=== PATIENT | female | born 1990 | race Caucasian/White ===

== ENCOUNTER 2016-07-29 16:58 | Emergency (ER) | payer BC ==
--- NOTE | 2016-07-29 17:30 | ER Document Report ---
ED Medical Screen (RME) - General Chief Complaint: Headache Stated Complaint: HEADACHE,DIZZY Notes: Headache and dizziness. I greeted and performed a rapid initial assessment of this patient. Comprehensive ED assessment and evaluation of the patient, analysis of test results and completion of the medical decision making process will be conducted by additional ED providers. Physical Exam - Vital signs Vitals: Temp Pulse Resp BP Pulse Ox 98.0 F 87 16 109/78 98 07/29/16 17:22 07/29/16 17:22 07/29/16 17:22 07/29/16 17:22 07/29/16 17:22 Course - Vital Signs Vital signs: Temp Pulse Resp BP Pulse Ox 98.0 F 87 16 109/78 98 07/29/16 17:22 07/29/16 17:22 07/29/16 17:22 07/29/16 17:22 07/29/16 17:22
[2016-07-29] MEDS ORDERED: METOCLOPRAMIDE HCL 10 MG TABLET PO ONE (21:05)
[2016-07-29] MEDS ORDERED: ACETAMINOPHEN 325 MG TABLET PO ONE (21:05)
[2016-07-29] MEDS ORDERED: DIPHENHYDRAMINE HCL 25 MG CAPSULE PO ONE (21:05)
[2016-07-29] MEDS ORDERED: NORMAL SALINE 1000 ML 1,000 ML IV PRN (21:06)
--- NOTE | 2016-07-29 22:50 | ER Document Report ---
HPI - HPI Patient complains to provider of: headache Pain Level: 5 Context: Patient is a 26-year-old female presents emergency Department complaining of headache that started this morning. Patient states that she has a history of migraines as well as a pituitary tumor and Gaucher's disease and limits her ability to take NSAIDs. Patient states that she normally takes Tylenol for her headaches but that this does not feel he can normal migraine. She is describing it as a constant dull ache described as a rubber band around her head. Otherwise she denies any light sensitivity, sound sensitivity and intermittent nausea. Past medical history as above. 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. - CARDIOVASCULAR Cardiovascular: DENIES: Chest pain - DERM Skin Color: Normal, [place] Past Medical History - General Information source: Patient - Social History Smoking Status: Never Smoker Family History: Reviewed & Not Pertinent Patient has suicidal ideation: No Patient has homicidal ideation: No Renal/ Medical History: Denies: Hx Peritoneal Dialysis Past Surgical History: Reports: Hx Orthopedic Surgery - bilat knees - Immunizations Hx Diphtheria, Pertussis, Tetanus Vaccination: Yes Vertical Provider Document - CONSTITUTIONAL Agree With Documented VS: Yes Exam Limitations: No Limitations General Appearance: WD/WN, No Apparent Distress - INFECTION CONTROL TRAVEL OUTSIDE OF THE [place] IN LAST 30 DAYS: No - HEENT HEENT: Atraumatic, Normal ENT Exam, Normocephalic, PERRLA - NECK Neck: Normal Inspection. negative: Lymphadenopathy-Left, Lymphadenopathy-Right - RESPIRATORY Respiratory: Breath Sounds Normal, No Respiratory Distress, Chest Non-Tender. negative: Rales, Rhonchi, Wheezing O2 Sat by Pulse Oximetry: 98 - CARDIOVASCULAR Cardiovascular: Regular Rate, Regular Rhythm, No Murmur Pulses: Normal: Radial - NEURO Level of Consciousness: Awake, Alert, Appropriate Motor/Sensory: No Motor Deficit, No Sensory Deficit Course - Re-evaluation Re-evalutation: 07/29/16 22:55 Patient is a 26-year-old female presents emergency Department complaining of a tension headache. Patient states that she is able to take Tylenol at home normally for her headaches but it didn't really help today. Patient denies any recent changes with her pituitary tumor. She is able to follow-up with her genetic specialist at [place]. She states that she is new to the area she does need a neurologist for as needed for his. Otherwise she is a healthy female who is symptomatically improved after IV fluids, Benadryl and Tylenol. Will discharge home with instruction to follow up with neurology and her PCP Per [facility] protocol and guidelines, this case was discussed with supervising physician Dr. Manoj Arriola prior to discharge - Vital Signs Vital signs: Temp Pulse Resp BP Pulse Ox 98.0 F 87 16 109/78 98 07/29/16 17:22 07/29/16 17:22 07/29/16 20:28 07/29/16 17:22 07/29/16 17:22 - Diagnostic Test Radiology reviewed: Image reviewed, Reports reviewed Discharge - Discharge Clinical Impression: Headache Qualifiers: Headache type: tension-type Headache chronicity pattern: acute headache Intractability: intractable Qualified Code(s): G44.201 - Tension-type headache, unspecified, intractable Condition: Good Disposition: HOME, SELF-CARE Instructions: Antinausea Medication ([facility]), Headache ([facility]), Use of Diphenhydramine Prescriptions: Cyclobenzaprine HCl [Flexeril 5 mg Tablet] 5 mg PO TIDP PRN #15 tablet PRN Reason: Forms: Return to Work Ref[facility]: [facility] [NO LOCAL MD] - Follow up as needed NEO JUNG MD [EMERITUS] - Follow up as needed
[2016-07-29 23:18] VITALS: BP 112/74
== END 2016-07-29 23:18 | disposition home or self-care (01) ==
LOC: ER 16:58
DX: G44.201 Tension-type headache, unspecified, intractable (principal); E75.22 Gaucher disease; D49.7 Neoplasm of unspecified behavior of endocrine glands and other parts of nervous system
CPT/HCPCS: 99284; 70450; J7030

== ENCOUNTER 2019-09-11 04:29 | Emergency (ER) | payer BC ==
[2019-09-11] MEDS ORDERED: ONDANSETRON HCL INJ/PF 4 MG/2 ML SDV IV ONE (05:01)
[2019-09-11] MEDS ORDERED: NORMAL SALINE 1000 ML 1,000 ML IV ONE ×2 (05:07→07:00)
[2019-09-11 05:15] LABS: ABSOLUTE EOSINOPHILS # (AUTO) 0.2 10^3/uL (0.0-0.6); ABSOLUTE LYMPHOCYTES (AUTO) 3.3 10^3/uL (0.5-4.7); ABSOLUTE MONOCYTES (AUTO) 0.7 10^3/uL (0.1-1.4); ABSOLUTE NEUT (AUTO) 4.2 10^3/uL (1.7-8.2); BASOPHILS % (AUTO) 0.2 % (0-2); EOSINOPHILS % (AUTO) 2.3 % (0-6); HEMATOCRIT 39.6 % (36.0-47.0); HEMOGLOBIN 13.7 g/dL (12.0-15.5); LYMPHOCYTES % (AUTO) 39.4 % (13-45); MEAN CORPUSCULAR HEMOGLOBIN 32.9 pg (27.0-33.4); MEAN CORPUSCULAR HGB CONC 34.6 g/dL (32.0-36.0); MEAN CORPUSCULAR VOLUME 95 fl (80-97); MONOCYTES % (AUTO) 8.8 % (3-13); PLATELET COUNT 313 10^3/uL (150-450); RED BLOOD COUNT 4.17 10^6/uL (3.72-5.28); RED CELL DISTRIBUTION WIDTH 13.2 % (11.5-14.0); SEGMENTED NEUTROPHILS % (AUTO) 49.3 % (42-78); TOTAL CELLS COUNTED % (AUTO) 100 %; WHITE BLOOD COUNT 8.5 10^3/uL (4.0-10.5)
[2019-09-11 05:24] LABS: ALBUMIN 3.9 g/dL (3.5-5.0); ALKALINE PHOSPHATASE 68 U/L (38-126); ANION GAP 14 (5-19); ASPARTATE AMINO TRANSFERASE 17 U/L (14-36); BILIRUBIN,DIRECT 0.3 mg/dL (0.0-0.4); BILIRUBIN,TOTAL 0.5 mg/dL (0.2-1.3); BLOOD UREA NITROGEN 12 mg/dL (7-20); CALCIUM 9.3 mg/dL (8.4-10.2); CARBON DIOXIDE 14 mmol/L (22-30); CHLORIDE 111 mmol/L (98-107); GLUCOSE 131 mg/dL (75-110); POTASSIUM 3.4 mmol/L (3.6-5.0); TOTAL PROTEIN 7.3 g/dL (6.3-8.2)
[2019-09-11 05:42] LABS: APPEARANCE,URINE CLOUDY; BILIRUBIN,URINE NEGATIVE (NEGATIVE); COLOR,URINE YELLOW; GLUCOSE, URINE NEGATIVE (NEGATIVE); KETONES,URINE NEGATIVE (NEGATIVE); LEUKOCYTE ESTERASE,URINE LARGE (NEGATIVE); NITRITE,URINE NEGATIVE (NEGATIVE); PROTEIN,URINE 100 mg/dL (NEGATIVE); URINE SPECIFIC GRAVITY 1.028
[2019-09-11] MEDS ORDERED: DICYCLOMINE HCL INJ 20 MG/2 ML AMPULE IM ONE ×2 (06:38→07:45)
[2019-09-11] MEDS ORDERED: METOCLOPRAMIDE HCL INJ/PF 10 MG/2 ML SDV IV ONE (06:55)
--- NOTE | 2019-09-11 07:00 | ER Document Report ---
ED General - General TRAVEL OUTSIDE OF THE [place] IN LAST 30 DAYS: No - Related Data Home Medications: SEE LIST <DANYELLE ESTRADA - Last Filed: 09/11/19 08:02> <ANDRES CARTER - Last Filed: 09/11/19 10:24> - General Chief Complaint: Abdominal Pain Stated Complaint: ABDOMINAL PAIN,NAUSEA,BODY CHILLS Time Seen by Provider: 09/11/19 06:38 Primary Care Provider: REECE CALVO PA-C [Primary Care Provider] - Follow up as needed Notes: 29-year-old female presents for 3-day history of right upper quadrant pain. Patient states that started off as a discomfort and got worse today. Patient states it is worse with movement and deep breaths. Denies any radiation. Patient did have associated clamminess and nausea/vomiting. Patient denies having pain like this previously. Patient denies any fevers, urinary symptoms, diarrhea, constipation. (DANYELLE ESTRADA) - Related Data Allergies/Adverse Reactions: ibuprofen Allergy (Verified 09/11/19 04:40) Penicillins Allergy (Verified 09/11/19 04:40) topiramate [From Topamax] Allergy (Verified 09/11/19 04:40) Past Medical History - Social History Smoking Status: Never Smoker Family History: Reviewed & Not Pertinent Patient has suicidal ideation: No Patient has homicidal ideation: No Renal/ Medical History: Denies: Hx Peritoneal Dialysis Past Surgical History: Reports: Hx Orthopedic Surgery - bilat knees - Immunizations Hx Diphtheria, Pertussis, Tetanus Vaccination: Yes <DANYELLE ESTRADA - Last Filed: 09/11/19 08:02> Review of Systems <DANYELLE ESTRADA - Last Filed: 09/11/19 08:02> - Review of Systems Notes: Constitutional: Negative for fever. HENT: Negative for sore throat. Eyes: Negative for visual changes. Cardiovascular: Negative for chest pain. Respiratory: Negative for shortness of breath. Gastrointestinal: Positive for right upper quadrant pain and nausea/vomiting. Negative for diarrhea. Genitourinary: Negative for dysuria. Musculoskeletal: Negative for back pain. Skin: Negative for rash. Neurological: Negative for headaches, weakness or numbness. 10 point ROS negative except as marked above and in HPI. (DANYELLE ESTRADA) Physical Exam <DANYELLE ESTRADA - Last Filed: 09/11/19 08:02> - Vital signs Vitals: Temp Pulse Resp BP Pulse Ox 98.3 F 84 22 H 108/69 97 09/11/19 04:40 09/11/19 04:40 09/11/19 04:40 09/11/19 04:40 09/11/19 04:40 - Notes Notes: GENERAL: Well-appearing, well-nourished and uncomfortable. HEAD: Atraumatic, normocephalic. EYES: Extraocular movements intact, sclera anicteric, conjunctiva are normal. NECK: Normal range of motion, supple without lymphadenopathy or JVD. ABDOMEN: Soft, tenderness to RUQ with rebound. No masses appreciated. EXTREMITIES: Normal range of motion, no pitting or edema. No clubbing or cyanosis. NEUROLOGICAL: Cranial nerves II through XII grossly intact. Normal speech, normal gait. PSYCH: Normal mood, normal affect. SKIN: Warm, Dry, normal turgor, no rashes or lesions noted. (DANYELLE ESTRADA) Course - Laboratory Result Diagrams: 09/11/19 04:50 09/11/19 04:50 <DANYELLE ESTRADA - Last Filed: 09/11/19 08:02> - Laboratory Result Diagrams: 09/11/19 04:50 09/11/19 04:50 <ANDRES CARTER - Last Filed: 09/11/19 10:24> - Re-evaluation Re-evalutation: 09/11/19 nontoxic, well-appearing 29-year-old female presents with right upper quadrant pain. Associated nausea/vomiting. Patient is visibly uncomfortable. Abdomen soft tenderness to right upper quadrant with rebound. PE is otherwise unremarkable. Patient is afebrile, non-tachycardic, non-hypoxic. CBC is within normal limits. CMP is significant for a potassium of 3.4 and a glucose of 131 but is otherwise within normal limits, including alk phos and liver enzymes. UA shows protein and large amount of blood. Ultrasound ordered. Another liter IV fluids ordered, Bentyl, and Reglan. Patient states Zofran did help however the nausea is starting to come back. 09/11/19 08:02 Signout given to GERALDINE Perez. (DANYELLE ESTRADA) 09/11/19 08:10 Report received on patient. 09/11/19 08:38 I evaluated the patient. She reports intermittent pain over the last 3 to 4 days but sudden sharp stabbing pain in the right upper quadrant this morning. Hurts worse to move or breathe. She is not on oral control. PERC ne gative. She does have moderate discomfort in the right upper quadrant on palpation but also over the right chest wall on palpation. She states she was playing with her nieces several days ago just prior to onset of the discomfort. This may be as simple as a muscular strain, ultrasound does not show acute abnormalities. Given her continuing discomfort will obtain CT imaging to evaluate for other intra-abdominal surgical or infectious pathologies. 09/11/19 10:22 Patient is noted to have a 2 mm proximal kidney stone likely causing her pain. She is more comfortable at this time. Discussed at length with the patient. Will place patient on Flomax, Percocet, Zofran, urology follow-up (ANDRES CARTER) - Vital Signs Vital signs: Temp Pulse Resp BP Pulse Ox 98.3 F 84 22 H 108/69 97 09/11/19 04:40 09/11/19 04:40 09/11/19 04:40 09/11/19 04:40 09/11/19 04:40 - Laboratory Laboratory results interpreted by me: 09/11/19 09/11/19 04:50 04:50 Potassium 3.4 L Chloride 111 H Carbon Dioxide 14 L Glucose 131 H Urine Protein 100 H Urine Blood LARGE H Urine Urobilinogen 2.0 H Ur Leukocyte Esterase LARGE H Discharge <DANYELLE ESTRADA - Last Filed: 09/11/19 08:02> <ANDRES CARTER - Last Filed: 09/11/19 10:24> - Discharge Clinical Impression: Abdominal pain, RUQ (right upper quadrant), Kidney stone on right side Condition: Stable Disposition: HOME, SELF-CARE Additional Instructions: 1. return to the ED for any fever, back pain or worsening condition 2. hydrate well at home to flush the system. 3. Percocet for pain, no driving if taking Percocet for pain 4. follow up with Urology for further evaluation and treatment 5. strain urine and bring any stone retrieved to Urology or PCP for testing Prescriptions: Tamsulosin HCl [Flomax 0.4 mg Cap.sr] 0.4 mg PO DAILY #7 cap.sr.24h Oxycodone HCl/Acetaminophen [Percocet 5-325 mg Tablet] 1 tab PO Q4H PRN #15 tab PRN Reason: Ondansetron [Zofran Odt 4 mg Tablet] 1 - 2 tab PO Q4H PRN #15 tab.rapdis PRN Reason: For Nausea/Vomiting Referrals: REECE CALVO PA-C [Primary Care Provider] - Follow up as needed TRAVIS RODRIGUEZ MD [NO LOCAL MD] - Follow up as needed
--- NOTE | 2019-09-11 08:13 | RADIOLOGY REPORT (SQ) ---
EXAM DESCRIPTION: U/S ABDOMEN LTD W/DOPPLER COMPLETED DATE/TIME: 09/11/2019 7:22 am REASON FOR STUDY: RUQ pain COMPARISON: None. TECHNIQUE: Dynamic and static grayscale images acquired of the abdomen and recorded on PACS. Additio nal selected color Doppler and spectral images recorded. LIMITATIONS: Limited secondary to body habitus and bowel gas. FINDINGS: PANCREAS: No masses. Visualized pancreatic duct normal caliber. Tail nonvisualized. LIVER: No masses. Increased echogenicity. No intrahepatic ductal dilation. LIVER VASCULATURE: Normal directional flow of the main portal vein and hepatic veins. GALLBLADDER: No stones. Normal wall thickness. No pericholecystic fluid. ULTRASOUND-DETECTED ASH'S SIGN: Negative. INTRAHEPATIC DUCTS AND COMMON DUCT: CBD and intrahepatic ducts normal caliber. No filling defects. INFERIOR VENA CAVA: Normal flow. AORTA: No aneurysm. RIGHT KIDNEY: Normal size measuring 11.9 cm. Normal echogenicity. No solid or suspicious masses. No hydronephrosis. No calcifications. PERITONEAL AND RIGHT PLEURAL SPACE: No ascites or effusions. OTHER: No other significant findings. IMPRESSION: Likely hepatic steatosis. Otherwise, unremarkable right upper quadrant ultrasound as visualized. TECHNICAL DOCUMENTATION: JOB ID: [id number] 2010 [facility]- All Rights Reserved Reading location - IP/workstation name: [email or web address]
[2019-09-11] MEDS ORDERED: FENTANYL CITRATE INJ/PF 100 MCG/2 ML AMPUL IV ONE (08:38)
--- NOTE | 2019-09-11 09:42 | RADIOLOGY REPORT (SQ) ---
EXAM DESCRIPTION: CT ABD/PELVIS WITH IV ONLY COMPLETED DATE/TIME: 09/11/2019 9:22 am REASON FOR STUDY: RUq pain COMPARISON: Ultrasound from earlier on same date. TECHNIQUE: CT scan of the abdomen and pelvis performed using helical scanning technique with dynamic intravenous contrast injection. No oral contrast. Images reviewed with lung, soft tissue, and bone windows. Reconstructed coronal and sagittal MPR images reviewed. Delayed images for evaluation of the urinary system also acquired. All images stored on PACS. All CT scanners at this facility use dose modulation, iterative reconstruction, and/or weight based d osing when appropriate to reduce radiation dose to as low as reasonably achievable (ALARA). [facility]: Dose Right [facility]: CareDose [facility]: Dose Right [facility]: Teradose 4D [facility]: [employer]mission [employer] (ZEEP) CONTRAST TYPE AND DOSE: contrast/concentration: Isovue 350.00 mg/ml; Total Contrast Delivered: 100.0 ml; Total Saline Delivered: 72.0 ml RENAL FUNCTION: None required. The patient is less than 50 years old. RADIATION DOSE: CT Rad equipment meets quality standard of care and radiation dose reduction techniq ues were employed. CTDIvol: 17.6 - 20.7 mGy. DLP: 2072 mGy-cm.. LIMITATIONS: None. FINDINGS: LOWER CHEST: No significant findings. No nodules or infiltrates. LIVER: Normal size. No masses. No dilated ducts. SPLEEN: Normal size. No focal lesions. PANCREAS: No masses. No significant calcifications. No adjacent inflammation or peripancreatic fluid collections. Pancreatic duct not dilated. GALLBLADDER: No identified stones by CT criteria. No inflammatory changes to suggest cholecystitis. ADRENAL GLANDS: No significant masses or asymmetry. RIGHT KIDNEY AND URETER: Punctate lower pole nonobstructing stone. There is, however, minimal hydron ephrosis related to a right proximal ureteral stone measuring 2 mm. This is just beyond the UPJ. LEFT KIDNEY AND URETER: No solid masses. No significant calcification. No hydronephrosis or hydrouret er. AORTA AND VESSELS: No aneurysm. No dissection. Renal arteries, SMA, celiac without stenosis. RETROPERITONEUM: No retroperitoneal adenopathy, hemorrhage or masses. BOWEL AND PERITONEAL CAVITY: No masses or inflammatory changes. No free fluid or peritoneal masses. APPENDIX: Normal. PELVIS: Trace left adnexal fluid with what appears be a small hemorrhagic cyst related to the ovary. Pelvic structures are otherwise unremarkable. ABDOMINAL WALL: No masses. No hernias. BONES: No significant or acute findings. OTHER: No other significant finding. IMPRESSION: 1. Mild right hydronephrosis. This is related to a 2 mm stone in the proximal ureter just beyond the UPJ. TECHNICAL DOCUMENTATION: JOB ID: [id number] Quality ID # [id number]: Final reports with documentation of one or more dose reduction techniques (e.g., Au tomated exposure control, adjustment of the mA and/or kV according to patient size, use of iterative reconstruction technique) 2010 [employer]- All Rights Reserved Reading location - IP/workstation name: [email or web address]
[2019-09-11] MEDS ORDERED: OXYCODONE-ACETAMINOPHEN 5-325 MG TABLET PO ONE (09:53)
[2019-09-11] MEDS ORDERED: TAMSULOSIN HCL 0.4 MG CAP.SR.24H PO ONE (09:53)
[2019-09-11 10:47] VITALS: BP 115/62
== END 2019-09-11 10:44 | disposition home or self-care (01) ==
LOC: ER 04:29
DX: N20.0 Calculus of kidney (principal); R10.9 Unspecified abdominal pain; R10.11 Right upper quadrant pain; R11.2 Nausea with vomiting, unspecified; Z88.0 Allergy status to penicillin; Z88.8 Allergy status to other drugs, medicaments and biological substances
CPT/HCPCS: 99284; 96372; 96361; 96374; 96375; 36415; 84702; 83690; 85025; 80053; 81001; 76705; 93976; 74177; J0500; J3010; J2765; J2405; J7030

== ENCOUNTER 2019-09-16 16:01 | Emergency (ER) | payer BC ==
[2019-09-16] MEDS ORDERED: ONDANSETRON HCL INJ/PF 4 MG/2 ML SDV IV ONE (16:11)
[2019-09-16] MEDS ORDERED: NORMAL SALINE 1000 ML 1,000 ML IV ONE ×2 (16:11→18:13)
[2019-09-16] MEDS ORDERED: MORPHINE SULFATE 10 MG/ML INJ IV ONE ×2 (16:20→18:04)
--- NOTE | 2019-09-16 16:21 | ER Document Report ---
ED Medical Screen (RME) - General Chief Complaint: Flank Pain Stated Complaint: FLANK PAIN Time Seen by Provider: 09/16/19 16:05 Primary Care Provider: REECE CALVO PA-C [Primary Care Provider] - Follow up as needed Mode of Arrival: Wheelchair Information source: Patient Notes: Patient is otherwise healthy 29-year-old female presenting to the emergency department chief complaint of vomiting, fever, flank pain and dysuria. Patient reports she was diagnosed with a kidney stone last week. She states she went and saw her primary care provider yesterday who told her she now has pyelonephritis. She states that she is now vomiting so much she cannot keep any medications down. Patient actively vomiting in triage. I have greeted and performed a rapid initial assessment of this patient. A comprehensive ED assessment and evaluation of the patient, analysis of test results and completion of the medical decision making process will be conducted by additional ED providers. I have specifically instructed the patient or family members with the patient to immediately return to any nursing staff should anything change in the patient's condition or with their chief complaint. TRAVEL OUTSIDE OF THE [place] IN LAST 30 DAYS: No - Related Data Allergies/Adverse Reactions: ibuprofen Allergy (Verified 09/11/19 04:40) Penicillins Allergy (Verified 09/11/19 04:40) topiramate [From Topamax] Allergy (Verified 09/11/19 04:40) Past Medical History Renal/ Medical History: Denies: Hx Peritoneal Dialysis Past Surgical History: Reports: Hx Orthopedic Surgery - bilat knees - Immunizations Hx Diphtheria, Pertussis, Tetanus Vaccination: Yes Physical Exam - Vital signs Vitals: Temp Pulse Resp BP Pulse Ox 97.4 F 106 H 22 H 113/85 100 09/16/19 16:05 09/16/19 16:05 09/16/19 16:05 09/16/19 16:05 09/16/19 16:05 Course - Vital Signs Vital signs: Temp Pulse Resp BP Pulse Ox 97.4 F 106 H 22 H 113/85 100 09/16/19 16:05 09/16/19 16:05 09/16/19 16:05 09/16/19 16:05 09/16/19 16:05 Doctor's Discharge - Discharge Referrals: REECE CALVO PA-C [Primary Care Provider] - Follow up as needed
--- NOTE | 2019-09-16 16:26 | ER Document Report ---
ED GI/ - General Chief Complaint: Flank Pain Stated Complaint: FLANK PAIN Time Seen by Provider: 09/16/19 16:05 Primary Care Provider: REECE CALVO PA-C [Primary Care Provider] - Follow up as needed Mode of Arrival: Wheelchair Notes: CHIEF COMPLAINT: Right flank pain and vomiting HPI: 29-year-old female presenting to the emergency department complaining of right flank pain and vomiting. Patient states that she was diagnosed with a kidney stone 5 days ago. States she had some improvement in her pain has not had any fever but began having increasing pain with multiple episodes of vo miting today. Saw her PCP and was referred back into the emergency department for evaluation and pain management. States she has not seen the kidney stone passed at this time. patient reports the pain seems to be both in the right upper quadrant as well as right lower quadrant and back. ROS: See HPI - all other systems were reviewed and are otherwise negative Constitutional: no fever Eyes: no drainage, no blurred vision ENT: no runny nose, no sore throat Cardiovascular: no chest pain Resp: no SOB, no cough GI: + vomiting, no diarrhea, + abdominal pain : no dysuria Integumentary: no rash Allergy: no hives Musculoskeletal: no extremity pain or swelling Neurological: no numbness/tingling, no weakness MEDICATIONS: I agree with the patient medications as charted by the RN. ALLERGIES: I agree with the allergies as charted by the RN. PAST MEDICAL HISTORY/PAST SURGICAL HISTORY: Reviewed and agree as charted by RN. SOCIAL HISTORY: Reviewed and agree as charted by RN. FAMILY HISTORY: No significant familial comorbid conditions directly related to patient complaint EXAM: Reviewed vital signs as charted by RN. CONSTITUTIONAL: Alert and oriented and responds appropriately to questions. Well-appearing; well-nourished, moderate distress secondary to pain and vomiting HEAD: Normocephalic; atraumatic EYES: PERRL; Conjunctivae clear, sclerae non-icteric ENT: normal nose; no rhinorrhea; moist mucous membranes; pharynx without lesions noted, no uvula edema or deviation, no tonsillar hypertrophy, phonation normal NECK: Supple without meningismus; non-tender; no cervical lymphadenopathy, no masses CARD: RRR; no murmurs, no clicks, no rubs, no gallops; symmetric distal pulses RESP: Normal chest excursion without splinting or tachypnea; breath sounds clear and equal bilaterally; no wheezes, no rhonchi, no rales, pulse oximetry 98% on room air not hypoxic ABD/GI: Normal bowel sounds; non-distended; soft, moderate tenderness with guarding in the right upper quadrant right lower quadrant and right CVA region; no palpable organomegaly or masses. BACK: The back appears normal and is non-tender to palpation, there is positive right CVA tenderness EXT: Normal ROM in all joints; non-tender to palpation; no cyanosis, no effusions, no edema SKIN: Normal color for age and race; warm; dry; good turgor; no acute lesions noted NEURO: Moves all extremities equally; Motor and sensory function intact PSYCH: The patient's mood and manner are appropriate. Grooming and personal hygiene are appropriate. MDM: 29-year-old female presenting for sudden worsening of right flank pain today with vomiting. Has been doing reasonably well in the last 5 days since she was evaluated for kidney stone. 5 days ago was noted to have a 2 mm kidney stone at the right UVJ. She has had no fevers. Appears moderately uncomfortable today. Initial screening labs through the triage process will add CT to further evaluate the abdomen, pain management and reassessment TRAVEL OUTSIDE OF THE [place] IN LAST 30 DAYS: No - Related Data Allergies/Adverse Reactions: ibuprofen Allergy (Verified 09/11/19 04:40) Penicillins Allergy (Verified 09/11/19 04:40) topiramate [From Topamax] Allergy (Verified 09/11/19 04:40) Past Medical History - General Information source: Patient - Social History Smoking Status: Never Smoker Family History: Reviewed & Not Pertinent Patient has suicidal ideation: No Patient has homicidal ideation: No Renal/ Medical History: Denies: Hx Peritoneal Dialysis Past Surgical History: Reports: Hx Orthopedic Surgery - bilat knees - Immunizations Hx Diphtheria, Pertussis, Tetanus Vaccination: Yes Physical Exam - Vital signs Vitals: Temp Pulse Resp BP Pulse Ox 97.4 F 106 H 22 H 113/85 100 09/16/19 16:05 09/16/19 16:05 09/16/19 16:05 09/16/19 16:05 09/16/19 16:05 Course - Re-evaluation Re-evalutation: 09/16/19 18:41 Patient is slightly more comfortable at this time, noted to have a 5 mm proximal right ureteral stone. Discussed with Dr. Rodney. 09/16/19 20:30 Have called [facility] transfer [facility] regarding patient. Will send facesheet and push images for urology to evaluate. They will speak with Dr. Rodney, attending. Patient is in agreement for the transfer if possible. She states if urology will not accept her will they possibly see her in the next 1 to 2 days if they are unable to take her tonight 09/16/19 21:00 Patient's pain is improved. Will give oral Percocet here. Dr. Bernal spoke with Shawn Fisher, Urology at [facility]. They declined the patient tonight indicating that they can put a stent in but would not be able to retr ieve the stone tonight if they are able to see her in the next 2 days in clinic they will be able to schedule her for both stent and stone removal. I discussed this at length with the patient. She is comfortable at this time with the plan for discharge and close follow-up in the office 09/16/19 21:01 Patient has Levaquin at home which she will continue. I will represcribed Percocet, Zofran, Flomax to make sure patient has enough for the next 2 days until she can see her urologist - Vital Signs Vital signs: Temp Pulse Resp BP Pulse Ox 98.4 F 69 22 H 98/60 L 96 09/16/19 19:10 09/16/19 19:10 09/16/19 16:05 09/16/19 19:10 09/16/19 19:10 - Laboratory Result Diagrams: 09/16/19 16:34 09/16/19 16:34 Laboratory results interpreted by me: 09/16/19 09/16/19 09/16/19 16:34 16:34 17:17 Lymph % (Auto) 10.4 L Absolute Neuts (auto) 8.6 H Seg Neutrophils % 83.3 H Chloride 112 H Carbon Dioxide 15 L Creatinine 1.31 H Est GFR ( Amer) 58 L Est GFR (MDRD) Non-Af 48 L Glucose 123 H Urine Protein 100 H Urine Blood LARGE H Urine Nitrite POSITIVE H Urine Urobilinogen 4.0 H Discharge - Discharge Clinical Impression: Kidney stone on right side, Intractable pain Condition: Stable Disposition: HOME, SELF-CARE Additional Instructions: Continue the Percocet 1 to 2 tablets every 4 hours for pain. Zofran for nausea. Flomax to help with spasm. Continue Levaquin at home. Call the urology office tomorrow to arrange close follow-up in the next 1 to 2 days for reevaluation return if pain becomes unmanageable at home as discussed Prescriptions: Tamsulosin HCl [Flomax 0.4 mg Cap.sr] 0.4 mg PO DAILY #7 cap.sr.24h Oxycodone HCl/Acetaminophen [Percocet 5-325 mg Tablet] 1 tab PO Q4H PRN #15 tab PRN Reason: Ondansetron [Zofran Odt 4 mg Tablet] 1 - 2 tab PO Q4H PRN #15 tab.rapdis PRN Reason: For Nausea/Vomiting Referrals: REECE CALVO PA-C [Primary Care Provider] - Follow up as needed SHAWN CARMONA MD [NO LOCAL MD] - Follow up as needed
[2019-09-16 17:03] LABS: ABSOLUTE LYMPHOCYTES (AUTO) 1.1 10^3/uL (0.5-4.7); ABSOLUTE MONOCYTES (AUTO) 0.6 10^3/uL (0.1-1.4); ABSOLUTE NEUT (AUTO) 8.6 10^3/uL (1.7-8.2); BASOPHILS % (AUTO) 0.2 % (0-2); EOSINOPHILS % (AUTO) 0.2 % (0-6); HEMATOCRIT 41.1 % (36.0-47.0); HEMOGLOBIN 14.5 g/dL (12.0-15.5); LYMPHOCYTES % (AUTO) 10.4 % (13-45); MEAN CORPUSCULAR HEMOGLOBIN 33.4 pg (27.0-33.4); MEAN CORPUSCULAR HGB CONC 35.4 g/dL (32.0-36.0); MEAN CORPUSCULAR VOLUME 94 fl (80-97); MONOCYTES % (AUTO) 5.9 % (3-13); PLATELET COUNT 282 10^3/uL (150-450); RED BLOOD COUNT 4.35 10^6/uL (3.72-5.28); RED CELL DISTRIBUTION WIDTH 13.3 % (11.5-14.0); SEGMENTED NEUTROPHILS % (AUTO) 83.3 % (42-78); TOTAL CELLS COUNTED % (AUTO) 100 %; WHITE BLOOD COUNT 10.3 10^3/uL (4.0-10.5)
[2019-09-16 17:33] LABS: ALBUMIN 4.6 g/dL (3.5-5.0); ALKALINE PHOSPHATASE 76 U/L (38-126); ANION GAP 14 (5-19); ASPARTATE AMINO TRANSFERASE 20 U/L (14-36); BILIRUBIN,TOTAL 0.8 mg/dL (0.2-1.3); BLOOD UREA NITROGEN 13 mg/dL (7-20); CALCIUM 9.9 mg/dL (8.4-10.2); CARBON DIOXIDE 15 mmol/L (22-30); CHLORIDE 112 mmol/L (98-107); GLUCOSE 123 mg/dL (75-110); POTASSIUM 3.9 mmol/L (3.6-5.0); TOTAL PROTEIN 7.9 g/dL (6.3-8.2)
[2019-09-16 17:38] LABS: APPEARANCE,URINE SLIGHTLY-CLOUDY; BILIRUBIN,URINE NEGATIVE (NEGATIVE); COLOR,URINE AMBER; GLUCOSE, URINE NEGATIVE (NEGATIVE); KETONES,URINE NEGATIVE (NEGATIVE); LEUKOCYTE ESTERASE,URINE NEGATIVE (NEGATIVE); NITRITE,URINE POSITIVE (NEGATIVE); PROTEIN,URINE 100 mg/dL (NEGATIVE); URINE SPECIFIC GRAVITY 1.029
[2019-09-16] MEDS ORDERED: TAMSULOSIN HCL 0.4 MG CAP.SR.24H PO ONE (18:04)
--- NOTE | 2019-09-16 18:24 | RADIOLOGY REPORT (SQ) ---
EXAM DESCRIPTION: CT ABD/PELVIS WITH IV ONLY COMPLETED DATE/TIME: 09/16/2019 5:56 pm REASON FOR STUDY: right side pain/vomiting COMPARISON: CT abdomen pelvis 09/11/2019 TECHNIQUE: CT scan of the abdomen and pelvis performed using helical scanning technique with dynamic intravenous contrast injection. No oral contrast. Images reviewed with lung, soft tissue, and bone windows. Reconstructed coronal and sagittal MPR images reviewed. Delayed images for evaluation of the urinary system also acquired. All images stored on PACS. All CT scanners at this facility use dose modulation, iterative reconstruction, and/or weight based d osing when appropriate to reduce radiation dose to as low as reasonably achievable (ALARA). [facility]: Dose Right [facility]: CareDose [facility]: Dose Right [facility]: Teradose 4D [facility]: [employer] CONTRAST TYPE AND DOSE: contrast/concentration: Isovue 350.00 mg/ml; Total Contrast Delivered: 100.0 ml; Total Saline Delivered: 72.0 ml RENAL FUNCTION: Creatinine 1.3 RADIATION DOSE: CT Rad equipment meets quality standard of care and radiation dose reduction techniq ues were employed. CTDIvol: 17.8 - 20.7 mGy. DLP: 2190 mGy-cm.. LIMITATIONS: None. FINDINGS: On coronal image 38, a 5 mm right proximal ureteral calculus is present at about the level of the right L4 transverse process. This causes moderate right hydronephrosis. There is high-grade right-sided urinary outflow obstruction, with a dense nephrogram on delayed image 39. Stone similar compared to CT abdomen pelvis 09/11/2019. Elsewhere in the right kidney and ureter, no other calculi are present. No right renal cysts or mass es. LOWER CHEST: No significant findings. No nodules or infiltrates. LIVER: Normal size. No masses. No dilated ducts. SPLEEN: Normal size. No focal lesions. PANCREAS: No masses. No significant calcifications. No adjacent inflammation or peripancreatic fluid collections. Pancreatic duct not dilated. GALLBLADDER: No identified stones by CT criteria. No inflammatory changes to suggest cholecystitis. ADRENAL GLANDS: No significant masses or asymmetry. RIGHT KIDNEY AND URETER: As above with high-grade right urinary outflow obstruction from a 5 mm rig ht proximal ureteral stone at the level of the right L4 transverse process, unchanged from 09/11/2019. LEFT KIDNEY AND URETER: No solid masses. No significant calcifications. No hydronephrosis or hydr oureter. AORTA AND VESSELS: No aneurysm. No dissection. Renal arteries, SMA, celiac without stenosis. RETROPERITONEUM: No retroperitoneal adenopathy, hemorrhage or masses. BOWEL AND PERITONEAL CAVITY: No masses or inflammatory changes. No free fluid or peritoneal masses. APPENDIX: Normal. PELVIS: No mass. No free fluid. Normal bladder. ABDOMINAL WALL: No masses. No hernias. BONES: No significant or acute findings. OTHER: No other significant finding. IMPRESSION: 5 mm right ureteral stone with high-grade right urinary outflow obstruction, moderate ri ght hydronephrosis and upper hydroureter TECHNICAL DOCUMENTATION: JOB ID: [id number] Quality ID # [id number]: Final reports with documentation of one or more dose reduction techniques (e.g., Au tomated exposure control, adjustment of the mA and/or kV according to patient size, use of iterative reconstruction technique) 2010 [employer]- All Rights Reserved Reading location - IP/workstation name: [email or web address]
[2019-09-16] MEDS ORDERED: LEVOFLOXACIN 750 MG/D5W RTU 750 MG/150 ML RTUPB IV ONE (18:41)
[2019-09-16 19:15] VITALS: BP 98/60
[2019-09-16] MEDS ORDERED: FENTANYL CITRATE INJ/PF 100 MCG/2 ML AMPUL IV ONE (19:15)
[2019-09-16] MEDS ORDERED: OXYCODONE-ACETAMINOPHEN 5-325 MG TABLET PO ONE (21:01)
== END 2019-09-16 21:09 | disposition home or self-care (01) ==
LOC: ER 16:01
DX: N13.2 Hydronephrosis with renal and ureteral calculous obstruction (principal); R11.10 Vomiting, unspecified; Z88.8 Allergy status to other drugs, medicaments and biological substances; Z88.0 Allergy status to penicillin; Z88.6 Allergy status to analgesic agent
CPT/HCPCS: 96376; 99284; 96361; 96375; 96365; 36415; 83690; 84703; 85025; 80053; 81001; 74177; J3010; J2270; J2405; J7030; J1956

== ENCOUNTER 2020-06-21 22:02 | Emergency (ER) | payer OTHER, BC ==
--- NOTE | 2020-06-21 23:03 | RADIOLOGY REPORT (SQ) ---
Right forearm radiographs: 06/21/2020 10:15 PM [facility] [employer] HISTORY: 30-year-old patient with right forearm pain . COMPARISON: None available TECHNIQUE: AP and lateral radiographs of the right forearm were obtained. FINDINGS: The visualized soft tissues appear grossly unremarkable. There are no findings to suggest an acute fracture or subluxation within the right forearm. IMPRESSION: There are no findings to suggest an acute fracture or subluxation within the right forearm.
--- NOTE | 2020-06-21 23:04 | RADIOLOGY REPORT (SQ) ---
Right elbow radiographs:06/21/2020 10:15 PM [facility] [employer]ER HISTORY: 30-year-old patient with right elbow pain . COMPARISON: None available TECHNIQUE: AP, oblique, and lateral images of the right elbow were obtained. FINDINGS: The visualized soft tissues appear grossly unremarkable. No large joint effusion is noted. No abnormal soft tissue calcifications are seen. There are no findings to suggest an acute fracture or subluxation of the right elbow. IMPRESSION: There are no findings to suggest an acute fracture or subluxation of the right elbow.
[2020-06-21] MEDS ORDERED: ACETAMINOPHEN 325 MG TABLET PO ONE (23:39)
[2020-06-22] MEDS ORDERED: HYDROCODONE/ACETAMINOPHEN 5-325 MG TABLET PO ONE (00:28)
[2020-06-22] MEDS ORDERED: HYDROCODONE/ACETAMINOPHEN 5-325 MG (6 TAB/ER DISP) PO PRN (00:28)
--- NOTE | 2020-06-22 00:34 | ER Document Report ---
Entered by ARBEN OAKLEY SCRIBE 06/22/20 0015 Acting as scribe for:GALE HERRERA, DO ED Extremity Problem, Upper - General Chief Complaint: Arm Pain Stated Complaint: WC-RIGHT ARM PAIN Time Seen by Provider: 06/22/20 00:02 Primary Care Provider: REECE CALVO PA-C [Primary Care Provider] - Follow up as needed Information source: Patient Notes: This 30 year old female patient presents to the emergency department today with complaints of RUE pain. 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 She tried to catch the patient and ended up falling with her and she now has RUE pain in her shoulder and elbow. She denies any other injuries during the fall. TRAVEL OUTSIDE OF THE [place] IN LAST 30 DAYS: No - Related Data Allergies/Adverse Reactions: ibuprofen Allergy (Verified 09/11/19 04:40) Penicillins Allergy (Verified 09/11/19 04:40) topiramate [From Topamax] Allergy (Verified 09/11/19 04:40) Past Medical History - General Information source: Patient - Social History Smoking Status: Never Smoker Cigarette use (# per day): No Frequency of alcohol use: None Drug Abuse: None Occupation: EMS Lives with: Family Family History: Reviewed & Not Pertinent - Medical History Medical History: Negative Past Surgical History: Reports: Hx Orthopedic Surgery - bilat knees - Immunizations Hx Diphtheria, Pertussis, Tetanus Vaccination: Yes Review of Systems - Review of Systems Constitutional: No symptoms reported EENT: No symptoms reported Cardiovascular: No symptoms reported Respiratory: No symptoms reported Gastrointestinal: No symptoms reported Genitourinary: No symptoms reported Female Genitourinary: See HPI, Irregular period Musculoskeletal: See HPI, Joint pain Skin: No symptoms reported Hematologic/Lymphatic: No symptoms reported Neurological/Psychological: No symptoms reported -: Yes All other systems reviewed and negative Physical Exam - Vital signs Vitals: Temp Pulse Resp BP Pulse Ox 98.2 F 94 16 114/82 100 06/21/20 22:13 06/21/20 22:13 06/21/20 22:13 06/21/20 22:13 06/21/20 22:13 - Notes Notes: Physical Exam: General: Alert, appears well. HEENT: Normocephalic. Atraumatic. PERRL. Extraocular movements intact. Oropharynx clear. Neck: Supple. Non-tender. Respiratory: No respiratory distress. Clear and equal breath sounds bilaterally. Cardiovascular: Regular rate and rhythm. Abdominal: Normal Inspection. Non-tender. No distension. Normal Bowel Sounds. Back: No gross abnormalities. Extremities: Moves all four extremities. Upper extremities: Pain with ROM testing of right elbow and left shoulder. No deformity. Lower extremities: Normal inspection. No edema. Normal ROM. Neurological: Normal cognition. AAOx4. Normal speech. Psychological: Normal affect. Normal Mood. Skin: Warm. Dry. Normal color. 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 No other injury. Pain mostly in elbow with rom and ressuring xray. Discussed limited work and follow up and she expressed understanding. - Vital Signs Vital signs: Temp Pulse Resp BP Pulse Ox 98.0 F 95 18 110/85 99 06/22/20 00:48 06/22/20 00:48 06/22/20 00:48 06/22/20 00:48 06/22/20 00:48 - Laboratory Results Critical Laboratory Results Reviewed: No Critical Results - Radiology Results Critical Radiology Results Reviewed: No Critical Results Discharge - Discharge Clinical Impression: Tendinitis of right forearm Right shoulder strain Qualifiers: Encounter type: initial encounter Qualified Code(s): S46.911A - Strain of unspecified muscle, fascia and tendon at shoulder and upper arm level, right arm, initial encounter Condition: Stable Disposition: HOME, SELF-CARE Instructions: Ice & Elevation ([facility]), Ice Packs ([facility]), Muscle Strain ([facility]), Tendon Strain ([facility]) Additional Instructions: Rest, ice and elevate right arm. Take medicine as directed. No work until 06/23 and then no use right arm until 06/19 - use your sling. See your workmans comp doctor in follow up - call 06/22 to schedule or orthopedics. Take tylenol for pain and if pain is worse than that, take hydrocodone as needed. Forms: Return to Work Referrals: REECE CALVO PA-C [Primary Care Provider] - Follow up as needed I personally performed the services described in the documentation, reviewed and edited the documentation which was dictated to the scribe in my presence, and it accurately records my words and actions.
[2020-06-22 00:50] VITALS: BP 110/85
== END 2020-06-22 00:51 | disposition home or self-care (01) ==
LOC: ER 22:02
DX: S46.911A Strain of unspecified muscle, fascia and tendon at shoulder and upper arm level, right arm, initial encounter (principal); M77.8 Other enthesopathies, not elsewhere classified; W03.XXXA Other fall on same level due to collision with another person, initial encounter; Y93.F9 Activity, other caregiving; Y99.0 Civilian activity done for income or pay; Z88.0 Allergy status to penicillin
CPT/HCPCS: 99283